=== PATIENT | male | born 1970 | race Caucasian/White ===

== ENCOUNTER 2017-02-11 14:32 | Emergency (ER) | payer MEDICAID ==
[~2017-02-11] VITALS: Ht 185.4 cm; Wt 94.8 kg
[2017-02-11 14:40] VITALS: BP_SYST 185
[2017-02-11] MEDS ORDERED: cloNIDine HCL 0.1 MG TABLET PO ONE (15:00)
[2017-02-11] MEDS ORDERED: METOPROLOL TARTRATE 5 MG/5 ML VIAL IVP ONE (16:00)
[2017-02-11] MEDS ORDERED: DILTIAZEM HCL 25 MG/5 ML VIAL IVP ONE (17:00)
[2017-02-11 17:13] VITALS: BP_SYST 149
== END 2017-02-11 17:13 | disposition home or self-care (01) ==
LOC: SED 14:32
DX: I10 Essential (primary) hypertension (principal); E16.2 Hypoglycemia, unspecified
CPT/HCPCS: 93005; 96374; 99284; J3490 ×2

== ENCOUNTER 2021-11-11 08:14 | Emergency (ER) | payer MEDICAID, SELFPAY ==
[~2021-11-11] VITALS: Ht 185.4 cm; Wt 99.8 kg
--- NOTE | 2021-11-11 08:20 | NUR ---
Patient to ER bed 7 to gown for evaluation. Side rails up. Report given to ALEXANDER SOLIS.
[2021-11-11 08:23] VITALS: BP_SYST 154
[2021-11-11] MEDS ORDERED: HYDROcodone/ACETAMIN 10-325 MG TAB PO ONE (08:30)
[2021-11-11] MEDS ORDERED: KETOROLAC TROMETHAMINE 60 MG/2 ML VIAL IM ONE (08:30)
--- NOTE | 2021-11-11 08:35 | NUR ---
51 years old male alert, oriented x4 c/o lower back pain for 4 days after pushing a car.
--- NOTE | 2021-11-11 09:25 | NUR ---
Patient resting quietly. No acute distress noted. Vital signs within normal range. back pain improved.
[2021-11-11] MEDS ORDERED: IBUP-1971 PO (09:27)
[2021-11-11] MEDS ORDERED: HYDR-3917 PO (09:27)
[2021-11-11 09:44] VITALS: BP_SYST 130
--- NOTE | 2021-11-11 09:47 | NUR ---
Patient given written and verbal discharge instructions and verbalizes understanding. ER MD discussed with patient the results and treatment provided. Patient in stable condition. ID arm band removed. Rx of given. Patient educated on pain management and to follow up with PMD. Pain Scale . Opportunity for questions provided and answered. Medication side effect fact sheet provided.
== END 2021-11-11 09:44 | disposition home or self-care (01) ==
LOC: SED 08:14
DX: S33.5XXA Sprain of ligaments of lumbar spine, initial encounter (principal); X50.0XXA Overexertion from strenuous movement or load, initial encounter; Y93.89 Activity, other specified; Y92.89 Other specified places as the place of occurrence of the external cause; Y99.8 Other external cause status
CPT/HCPCS: 72100; 96372; 99283; J1885